=== PATIENT | male | born 1975 | race African-American/Black ===

== ENCOUNTER 2022-06-24 23:49 | Emergency (ER) | payer SELFPAY ==
[2022-06-25 00:55] VITALS: BP 142/91; RESP 20; TEMP 97.4; BMI 24.0
[2022-06-25] MEDS ORDERED: DALBAVANCIN HCL 1,500 MG in DEXTROSE 5%-WATER - 500 ML IVPB ONE (01:02)
[2022-06-25 01:03] VITALS: PULSE 82
[2022-06-25 02:01] LABS: BASO % 1.2 % (0-2.0); EOS % 7.7 % (0-4.5); HEMATOCRIT 35.5 % (35.4-49); HEMOGLOBIN 12.1 GM/dL (11.7-16.9); MCH 29.6 pg (25.7-33.7); MEAN CELL VOLUME 87.2 fl (80-96); MEAN PLT VOLUME 6.8 fl (7.5-11.1); NEUT % 61.1 % (42.8-82.8); PLATELET COUNT 323 10^3/uL (134-434); RBC 4.08 M/mm3 (4.00-5.60); RDW 13.6 % (11.9-15.9)
[2022-06-25] MEDS ORDERED: DALBAVANCIN HCL 500 MG VIAL (RESTRICTED TO ID ONLY) IVPB ONE (02:03)
[2022-06-25 02:23] LABS: POTASSIUM 4.5 mmol/L (3.5-5.1)
[2022-06-25 02:25] LABS: ALBUMIN 2.8 g/dl (3.4-5.0); BLOOD UREA NITROGEN 17.2 mg/dL (7-18); CALCIUM 8.5 mg/dL (8.5-10.1)
[2022-06-25 02:28] LABS: CREATININE 0.7 mg/dL (0.55-1.3)
[2022-06-25 02:30] LABS: BILIRUBIN,TOTAL 0.2 mg/dL (0.2-1); TOT PROT 7.1 g/dl (6.4-8.2)
== END 2022-06-25 04:00 | disposition short-term general hospital (02) ==
LOC: JER 23:49
DX: L98.9 Disorder of the skin and subcutaneous tissue, unspecified (principal); R06.02 Shortness of breath; R21 Rash and other nonspecific skin eruption; L01.00 Impetigo, unspecified; Z59.00 Homelessness unspecified
CPT/HCPCS: 0241U-QW; 36415; 71045-TC-FY; 80053; 84484; 85025; 87070; 87076; 87077; 87186; 87205; 93005; 93010; 99285-25; J0875